=== PATIENT | female | born 1935 | race Caucasian/White ===

== ENCOUNTER 2016-08-28 23:30 | Inpatient (IN) | payer MEDICARE ==
[~2016-08-28] VITALS: Ht 165.1 cm; Wt 39.1 kg
--- NOTE | ~2016-08-28 | HP ---
PATIENT'S NAME: WILLIAM BUSBY [facility] AGE: 81 Y [address] ROOM: [address] [place], [place] [address] LOCATION: GPCU ADMIT DATE: 08/29/2016 History & Physical DISCHARGE DATE: FAMILY PHYSICIAN: PHYSICIAN, NO ATTENDING PHYSICIAN: KASI LUJAN DATE OF SERVICE: CHIEF COMPLAINT: Shortness of breath and chest pain. HISTORY OF PRESENT ILLNESS: This is a 81-year-old female who is a poor historian. The patient says that about 8 hours ago she felt this sudden onset of shortness of breath and a very brief duration of a few seconds of substernal chest pain that she described as stabbing-type of chest pain without radiation and lasted only about a few seconds. The intensity of the chest pain was about 4/10. She could not give any more history. Upon further questioning, the patient says that she still smokes cigarette, she has been smoking cigarettes about half pack per day all her life. The patient has a history of lung adenocarcinoma stage IA, status post right thoracotomy with right upper lobectomy on October 16, 2014. The patient chronically has chronic productive yellowish cough and at baseline also has some exertional dyspnea, but she says that 8 hours ago these symptoms worsened. However, she states that her chronic productive cough has not been getting worse. The main problem that made her come here is that she has been feeling cold and also sudden onset of dyspnea that happened 8 hours ago. No other history could be obtained given that the patient is a poor historian and her at bedside could not provide much information either. The patient denies any other symptoms. She also denies any trauma or any recent sickness or any recent sick contact. REVIEW OF SYSTEMS: As mentioned in the history of present illness. All other systems reviewed and negative except those mentioned in the history of present illness. PAST MEDICAL HISTORY: 1. Adenocarcinoma of the lungs, stage IA, status post right thoracotomy and right upper lobectomy on October 16, 2014. 2. Dementia per medical records. 3. COPD, not on home oxygen. Active cigarette smoker about a half pack per day all her life. 4. Active alcohol use about 1-2 cans of beer on and off. The last drink was the day before yesterday. She denies any alcohol withdrawal or any alcohol withdrawal seizure in the past. 5. Hypertension. PATIENT'S NAME: WILLIAM BUSBY [facility] AGE: 81 Y [address] ROOM: [address] [place] [address] [facility] ADMIT DATE: 08/29/2016 History & Physical DISCHARGE DATE: FAMILY PHYSICIAN: PHYSICIAN, NO ATTENDING PHYSICIAN: KASI LUJAN 6. Osteoarthritis. 7. Restless legs syndrome. 8. Failure to thrive. ALLERGIES: SULFA, DOXYCYCLINE, PENICILLIN, LODINE (SHE DOES NOT REMEMBER WHAT REACTION SHE HAS TO THESE MEDICATIONS). HOME MEDICATIONS: Currently is being reconciled. The patient does not remember any medication that she takes at home. SOCIAL HISTORY: The patient is an active cigarette smoker about half a pack per day all her life. The patient is an active alcohol drinker about 1-2 cans of beer on and off all her life, last drink was the day before yesterday. She denies any illegal drug use. She also denies any history of alcohol withdrawal or alcohol withdrawal seizure or delirium tremens in the past. FAMILY HISTORY: Father at age 61-year-old, but she could not remember what cause. Mother from cancer at age 39, but she could not remember which type of cancer. PAST SURGICAL HISTORY: 1. Status post right thoracotomy and right upper lobe lobectomy secondary to adenocarcinoma of the lung in the past. 2. Status post appendectomy. 3. Status post hysterectomy. 4. Status post stenting of the femoropopliteal artery x2 in 2008, not sure which extremity, this is per the medical record. 5. Status post left breast lumpectomy in the past. 6. Status post shoulder surgery, not sure per medical records. PHYSICAL EXAMINATION: VITAL SIGNS: At the time of my dictation, temperature 100.2, blood pressure 140/80, respirations 20, heart rate 90, and saturation 94% on 4 L nasal cannula. GENERAL APPEARANCE: The patient looks frail, elderly, deconditioned, cachectic, malnourished, and not in acute distress. Alert and oriented x3, but a very poor historian. HEENT: Pupils equally round and reactive to light. Extraocular muscles intact. Anicteric sclerae. Nasal turbinates are normal bilaterally. Moist oral mucosa. No oral thrush. NECK: No JVD. No cervical lymphadenopathy. No neck stiffness. PATIENT'S NAME: WILLIAM BUSBY [facility] AGE: 81 Y [address] ROOM: [address] [place] [address] LOCATION: GPCU ADMIT DATE: 08/29/2016 History & Physical DISCHARGE DATE: FAMILY PHYSICIAN: PHYSICIAN, NO ATTENDING PHYSICIAN: KASI LUJAN CARDIOVASCULAR: Regular rate and rhythm. Normal S1, S2. No murmur, no rubs, no gallops. RESPIRATORY: Decreased breath sounds diffusely. No obvious wheezing, crackles, rales, or rhonchi. Absent breath sounds on the right upper lung field. ABDOMEN: Soft, nontender, nondistended. Normal bowel sounds. No hepatosplenomegaly. Bowel sounds are present. EXTREMITIES: No edema in upper or lower extremities. SKIN: No ulcer, no rash, no cyanosis. MUSCULOSKELETAL: No joint pain, no muscle pain. Range of motion intact. NEUROLOGIC: Grossly nonfocal. LABORATORY DATA: ABG on room air shows saturation 88%, pH 7.42, pCO2 30, PO2 54, bicarbonate 19.5. Lactic acid 5.5. Troponin less than 0.04, CPK 43, the first set. ProBNP of 1069. White blood cells 21.6, hemoglobin 16.5, hematocrit 50, MCV 98.2, and platelet 280. Glucose 103, BUN 6, creatinine 0.6, sodium 136, potassium 3.3, chloride 99, and CO2 21. Calcium 9.4, total protein 7.8, albumin at 3.6, AST 36, ALT 46, alkaline phosphatase 147, total bilirubin 0.4. GFR more than 60. Anion gap 19.3. INR 1.0. Urinalysis not yet collected. CK-MB 1.4, CRP 0.6. Influenza nasal antigen swab negative. Procalcitonin less than 0.05. IMAGING STUDIES: 1. EKG on admission shows sinus tachycardia, heart rate of 118, QRS 81 msec, with left axis deviation. No acute ischemic changes. 2. Chest x-ray on admission, imaging and official report are pending. ASSESSMENT/PLAN: 1. Severe sepsis and acute hypoxemic respiratory failure secondary to possible pneumonia; however, has to rule out spontaneous pneumothorax: Chest x-ray report is pending and if concerning, will request to be read by our on-call radiologist to rule out spontaneous pneumothorax. The patient has a significant smoking history and has undergone right upper lung lobectomy for lung adenocarcinoma, and she has very decreased and almost absent breath sounds diffusely even on the left side of the lung. In the setting of a sudden onset of shortness of breath, chest pain, and active smoking, advanced copd, I am concerned about secondary spontaneous pneumothorax if she could have had a bleb that ruptured. Second differential could be pulmonary embolism due to the sudden onset of chest pain and also shortness of breath. I will get a D-dimer checked right now. If positive, we will get a CT pulmonary angiogram. Her kidney function is normal. For the possible pneumonia, I am going to cover her with triple antibiotics given that she is a very frail elderly female, with lung cancer but still smokes and has advanced COPD; PATIENT'S NAME: WILLIAM BUSBY [facility] AGE: 81 Y [address] ROOM: [place] [address] LOCATION: GPCU ADMIT DATE: 08/29/2016 History & Physical DISCHARGE DATE: FAMILY PHYSICIAN: PHYSICIAN, NO ATTENDING PHYSICIAN: KASI LUJAN therefore, I am going to cover her with IV vancomycin and IV aztreonam given that she has the penicillin allergy, not sure what reaction, but she is a poor historian and I will also add IV Levaquin. I will do pneumonia workup including sputum culture, Gram stain, urinary antigen for Legionella and pneumococcal, keep her on oxygen nasal cannula to keep saturation 90 to 94% in a COPD patient. Treat her with COPD treatment with IV Solu-Medrol 125 mg x1 now, then 60 b.i.d. and also nebulization with Xopenex plus Atrovent q.6 hours while awake for 24 hours, then titrate per RT for RSS and Atrovent q.2 hours p.r.n. per RT for RSS. Incentive spirometry. I will also get blood culture 2 sets and check a UA and a urine culture. The patient has fever, has extreme leukocytosis, has tachypnea, tachycardic, also with acute hypoxemic respiratory failure, and also has elevation of lactic acid. The patient meets the criteria for severe sepsis. Severe sepsis order has been filled out and is in the chart. Further plan depends on clinical course. If has diarrhea, will check for c diff also. 2. Regarding her hypokalemia: I will give her IV potassium chloride 40 mEq x1 run at 10 mEq over 1 hour, given the patient feels nauseous and I do not think she can tolerate p.o. potassium at the moment. 3. Regarding her transient chest pain: I will keep checking cardiac enzymes every 6 hours for a total of 3 sets. EKG on admission did not show any acute ischemic changes. Repeat EKG in the morning. Currently, the patient is chest pain-free. Further plan depends on clinical course. 4. Regarding her active cigarette use: Nicotine patch 21 g transdermal daily. 5. Regarding her active alcohol use: Put her on the CIWA protocol order set. 6. Regarding her hypertension: Medication is being reconciled. and I will hold off on her home medication in the setting of severe sepsis. 7. Regarding her lung cancer adenocarcinoma, status post right thoracotomy and right upper lobe lobectomy in the past: As mentioned before, I will get a chest x-ray and might request it to be read by our radiologist to rule out spontaneous pneumothorax and also if D-dimer is high, I will get a CT pulmonary angiogram to rule out PE. I will also consult Pulmonology in this case due to the complexity of her previous lung history in the setting of her acute hypoxemic respiratory failure. 8. Reported history of deep venous thrombosis: Details not clear. The patient does not remember. I will screen her with venous duplex ultrasound of the bilateral lower extremities. 9. Deep venous thrombosis prophylaxis: I will wait for the chest x-ray to be read 1st to rule out spontaneous pneumothorax in case she would require invasive intervention. If negative, will use lovenox sc. CODE STATUS: She is a full code. PATIENT'S NAME: WILLIAM BUSBY [facility] AGE: 81 Y [address] ROOM: [place] [address] LOCATION: GPCU ADMIT DATE: 08/29/2016 History & Physical DISCHARGE DATE: FAMILY PHYSICIAN: PHYSICIAN, NO ATTENDING PHYSICIAN: KASI LUJAN Time spent on the day of admission 60 minutes including chart review, interviewing and examining the patient, addressing all the questions and concerns the patient and the patient's had at the bedside, and going over the plan of care with the nurse and also with the patient and the patient's . MD AJDA MARTINEZ/lorna /[id number] D: [id number] T: [id number] HISTORY & PHYSICAL
--- NOTE | ~2016-08-28 | ER ---
PATIENT'S NAME: WILLIAM BUSBY [facility] AGE: 81 Y [address] ROOM: [address] [address] [facility] ADMIT DATE: 08/29/2016 ER/Outpatient Report DISCHARGE DATE: FAMILY PHYSICIAN: PHYSICIAN, JOHNNA ATTENDING PHYSICIAN: KASI LUJAN Admission date and time documented in the medical record. I saw the patient at 2340 hours. CHIEF COMPLAINT: Shortness of breath, generalized weakness, ill all day. HISTORY OF PRESENT ILLNESS: The patient is a 81-year-old female, who has been ill since this morning. She has had a deteriorating course throughout the day. She has no chest pain, but is quite short of breath. It was found to have her O2 sats in the high 70s, low 80s on room air at home by paramedics. Paramedics brought the patient into the emergency room for evaluation via ambulance. The patient has generalized weakness. "I feel sick." The patient denies any headache, eyes, ears, nose, throat, neck, or spine pain. Does not ache all over. A little lightheaded, dizzy, but no syncope or near syncope. No fall or trauma up until today. No recent colds, coughs, flus, fever, chills, or sweats. No abdominal pain, nausea, vomiting, diarrhea. No urinary frequency, urgency, or dysuria. No incontinence. No joint or muscle swelling, redness, or pain. No skin eruptions or rash. No history of neuro changes, psych issues, endocrine problems. The patient does have a history of peripheral vascular disease, claudication, coronary artery disease, COPD. She has had a history of adenocarcinoma of the right upper lung with thoracotomy and right upper lung lobectomy. She was hypothermic with a temperature 95.7. She is tachypneic, tachycardic, and hypoxic. HOME MEDICATIONS: None. ALLERGIES: SULFA, DOXYCYCLINE, PENICILLIN, AND IODINE. SOCIAL HISTORY: The patient smokes half a pack of cigarettes per day. Occasional intake of alcohol. SIGNIFICANT PAST MEDICAL HISTORY: Atherosclerotic ischemic heart disease with coronary artery disease, COPD, tobacco abuse, alcohol abuse, peripheral vascular disease, claudication, hypertension, dyslipidemia, breast cancer, lung cancer, respiratory distress, PATIENT'S NAME: WILLIAM BUSBY [facility] AGE: 81 Y [address] ROOM: [address] [place], [place] [address] [facility] ADMIT DATE: 08/29/2016 ER/Outpatient Report DISCHARGE DATE: FAMILY PHYSICIAN: PHYSICIAN, NO ATTENDING PHYSICIAN: KASI LUJAN restless legs syndrome, poor nutritional status. OPERATIONS: Bronchoscopy, hemorrhoidectomy, hysterectomy, appendectomy, neck surgery, shoulder surgery, thoracotomy with right upper lung lobectomy, left breast lumpectomy, colonoscopy, cardiac catheterization with PTCA and stenting. REVIEW OF SYSTEMS: All systems reviewed by me are negative with the exception of those discussed in the history of present illness. PHYSICAL EXAMINATION: VITAL SIGNS: Temperature 95.7 tympanic, pulse 116 and regular, respirations 20, blood pressure 172/73, O2 saturation on 4 L oxygen nasal cannula is 94%. HEAD: Normocephalic. No abrasion, contusion, laceration, or swellings. EYES: Extraocular muscles intact. PERRL. EARS: Clear TMs bilaterally. NOSE: Clear. THROAT: Clear. Mucous membranes moist. NECK: No nuchal rigidity. No thyromegaly or cervical adenopathy. LUNGS: Diminished breath sounds diffusely, especially in the right lung field. The patient is tachypneic. HEART: Tachy, regular. Pulses palpable. ABDOMEN: Soft. Nondistended. Nontender. Active bowel tones. No organomegaly or abnormal mass palpable. EXTREMITIES: Without peripheral edema, cyanosis, or deformity. NEUROVASCULAR: Intact. SKIN: Clear. No skin eruptions or rash. The patient has very cachectic skin and bones. LABORATORY DATA AND X-RAYS: Chest x-ray shows what looks like to be scattered infiltrate in both lung marie. We will review x-ray with the radiologist. Laboratory: Procalcitonin was less than 0.05. Lactate was 5.5. Arterial blood gases on room air showed a pH of 7.42, pCO2 of 30, pO2 of 54 with an O2 saturation of 88%. Influenza A and B were both negative. CMS was normal except for a low potassium of 3.3, elevated glucose 103, elevated alkaline phosphatase 147. CPK was 43. Vgifl-jw-jped cardiac enzymes were normal. CRP was elevated at 0.60. ProBNP was elevated 1069. White count was 21,600, 87 segs, 6 lymphs, 5 monos, 1 baso, hemoglobin 16.5, hematocrit 50.0, platelet count is 380,000. PTT was 28, pro-time was 9.9 with an INR 1.0. Blood cultures x2 drawn, results are pending. EMERGENCY DEPARTMENT COURSE: PATIENT'S NAME: WILLIAM BUSBY [facility] AGE: 81 Y [address] ROOM: [place] [address] [facility] ADMIT DATE: 08/29/2016 ER/Outpatient Report DISCHARGE DATE: FAMILY PHYSICIAN: PHYSICIAN, JOHNNA ATTENDING PHYSICIAN: KASI LUJAN I did give the patient a DuoNeb respiratory treatment here in the emergency department. Started her on fluids. We will give her 2 L followed by 150 mL an hour. She is not hypotensive. We did start her on Levaquin 750 mg IV here in the emergency department. IMPRESSION: 1. Bilateral pneumonia. The patient meets sepsis criteria. Culture is pending. 2. Chronic obstructive pulmonary disease. 3. History of adenocarcinoma of the right upper lung with thoracotomy and right upper lung lobectomy. 4. History of left breast cancer, status post left breast lumpectomy. 5. Tobacco abuse. 6. Alcohol abuse. 7. Atherosclerotic ischemic heart disease with coronary artery disease. 8. Peripheral vascular disease with claudication. 9. Hypertension. 10. Dyslipidemia. 11. Poor nutritional status. PLAN: Discussed the patient with Dr. Lujan, hospitalist. Dr. Lujan is going to see the patient here in the emergency department, admit the patient to PCU telemetry for further evaluation and treatment. Discussion ensued with the patient concerning my findings and recommendations, she understands. Cumulative critical care time 40 minutes. MD CARY CASAREZ/modl /[id number] d: 08/29/16 0258 t: 08/29/161811, OUTPATIENT REPORT
--- NOTE | ~2016-08-28 | ENPV ---
Vascular Lower Extremities DVT Study Procedure Demographics Patient Name WILLIAM BUSBY Date of Study 08/29/2016 Patient Number [id number] Gender Female Date of 1935 Age 81 Visit Number [id number] Height Accession Number [id number] Weight Room Number G6322 BSA BMI Referring Laura Lim MD Interpreting Matty Padilla MD Physician Physician Physician Ordering Laura Lim Boilers Inspector Physician Central Office Rep[facility]r [facility] Conclusions Summary No evidence of deep vein thrombosis or superficial thrombophlebitis in the lower extremities bilaterally. Procedure Type of Study: Veins:Lower Extremities DVT Study, Venous Duplex Lower Extremity Bilateral. Additional Indications:pneumonia Appropriate Use Criteria:7 Patient Status:Routine. Study Location:Inpatient Portable. Technical Quality:Adequate visualization. Velocities are measured in cm/s ; Diameters are measured in cm Right Lower Extremities DVT Study Measurements Right 2D and Doppler Measurements + + + + +------+------+ + !Location !Visualized!Compressibility!Thrombosis!Signal!Reflux!Reflux ! ! ! ! ! ! ! !(sec) ! + + + + +------+------+ + !GSV Thigh !Yes !Yes !None !Phasic! ! ! + + + + +------+------+ + !Common !Yes !Yes !None !Phasic! ! ! !Femoral ! ! ! ! ! ! ! + + + + +------+------+ + !Prox !Yes !Yes !None !Phasic! ! ! !Femoral ! ! ! ! ! ! ! + + + + +------+------+ + !Mid Femoral!Yes !Yes !None !Phasic! ! ! + + + + +------+------+ + !Dist !Yes !Yes !None !Phasic! ! ! !Femoral ! ! ! ! ! ! ! + + + + +------+------+ + !Popliteal !Yes !Yes !None !Phasic! ! ! + + + + +------+------+ + !Gastroc !Yes !Yes !None !Phasic! ! ! + + + + +------+------+ + !PTV !Yes !Yes !None !Phasic! ! ! + + + + +------+------+ + !Peroneal !Yes !Yes !None !Phasic! ! ! + + + + +------+------+ + Left Lower Extremities DVT Study Measurements Left 2D and Doppler Measurements + + + + +------+------+ + !Location !Visualized!Compressibility!Thrombosis!Signal!Reflux!Reflux ! ! ! ! ! ! ! !(sec) ! + + + + +------+------+ + !GSV Thigh !Yes !Yes !None !Phasic! ! ! + + + + +------+------+ + !Common !Yes !Yes !None !Phasic! ! ! !Femoral ! ! ! ! ! ! ! + + + + +------+------+ + !Prox !Yes !Yes !None !Phasic! ! ! !Femoral ! ! ! ! ! ! ! + + + + +------+------+ + !Mid Femoral!Yes !Yes !None !Phasic! ! ! + + + + +------+------+ + !Dist !Yes !Yes !None !Phasic! ! ! !Femoral ! ! ! ! ! ! ! + + + + +------+------+ + !Popliteal !Yes !Yes !None !Phasic! ! ! + + + + +------+------+ + !Gastroc !Yes !Yes !None !Phasic! ! ! + + + + +------+------+ + !PTV !Yes !Yes !None !Phasic! ! ! + + + + +------+------+ + !Peroneal !Yes !Yes !None !Phasic! ! ! + + + + +------+------+ + Signature dtt: TIFFANIE QUINTANILLA dtd: 08/29/16 0704 Physician Self Trang
--- NOTE | ~2016-08-28 | CON ---
PATIENT'S NAME: WILLIAM BUSBY [facility] AGE: 81 Y [address] ROOM: [place] [address] LOCATION: GPCU ADMIT DATE: 08/29/2016 Consultation DISCHARGE DATE: FAMILY PHYSICIAN: PHYSICIAN, NO ATTENDING PHYSICIAN: KASI LUJAN DATE OF CONSULTATION: 08/29/2016 REFERRING PHYSICIAN: Baltazar Rice MD REFERRING: Hospitalist Service. REASON FOR REFERRAL: Hypoxemia. HISTORY OF PRESENT ILLNESS: The patient is a 81-year-old woman who was brought to the emergency room after being found hypoxemic, short of breath. She has a longstanding history of pulmonary problems including adenocarcinoma, status post right upper lobectomy and persistent tobacco use with COPD. Interestingly, she is not hypoxemic, currently on room air. PAST MEDICAL HISTORY: Please refer to the admission history and physical exam. FAMILY HISTORY: Negative for lung disease. SOCIAL HISTORY: Lives with her at home. REVIEW OF SYSTEMS: As per HPI. PHYSICAL EXAMINATION: GENERAL: Cachectic elderly, frail. ENT: Unremarkable. NECK: Normal. CHEST: Hyperinflated. LUNGS: Diminished breath sounds with a few rhonchi. HEART: Regular. ABDOMEN: Soft, nontender. EXTREMITIES: No clubbing or edema. ASSESSMENT: PATIENT'S NAME: WILLIAM BUSBY [facility] AGE: 81 Y [address] ROOM: [place] [address] LOCATION: GPCU ADMIT DATE: 08/29/2016 Consultation DISCHARGE DATE: FAMILY PHYSICIAN: PHYSICIAN, NO ATTENDING PHYSICIAN: KASI LUJAN Given that she is not hypoxemic presently, I am not sure there is an acute respiratory issue. Certainly, she has number of chronic respiratory issues that are ongoing. Workup is currently in progress. We will follow with you. MD BRANDON SCHROEDER/lorna /[id number] d: 08/29/16 1411 t: 09/01/16 1303, CONSULTATION REPORT
--- NOTE | ~2016-08-28 | DS ---
PATIENT'S NAME: WILLIAM BUSBY [facility] AGE: 81 Y [address] ROOM: [address] [place], [place] [address] LOCATION: GPCU ADMIT DATE: 08/29/2016 Discharge Summary DISCHARGE DATE: 08/31/2016 FAMILY PHYSICIAN: David Dunn MD ATTENDING PHYSICIAN: Jj Sanchez PRIMARY DIAGNOSES: 1. Acute hypoxic respiratory failure. 2. Right hilar lobar pneumonia. 3. Chronic obstructive pulmonary disease exacerbation. 4. Severe protein-calorie malnutrition. 5. Alcohol abuse. 6. Hypokalemia. PRINCIPAL PROCEDURES: Done for the patient, none was indicated. LABORATORY DATA: On admission, ABG was 7.42, pCO2 of 30, pO2 of 54, bicarb 19.5. Lactic acid 5.5, repeat was 3.0. Troponin less than 0.0. ProBNP 1069. WBC on admission was 21.6, prior to discharge was 18.3; H and H on admission were 16.5 and 50.0, prior to discharge were 12.2 and 36.3; platelet 380. Sodium on admission was 136, prior to discharge was 142; potassium on admission was 3.3, prior to discharge was 4.3; bicarb was stable throughout hospital stay, on admission was 21, prior to discharge was 24; creatinine on admission was 0.6, prior to discharge was 0.5; BUN was 6 on admission, prior to discharge was 11. Phosphorus on admission was 2.8, was stable throughout the hospital stay. Liver function tests were within normal limits. Magnesium on admission was 1.5, prior to discharge was 2.4. INR was 1.0. UA: Leukocytes were 25, nitrite was negative, wbc was 0 to 2, bacteria was rare. Procalcitonin was 0.12. Neutrophil differential was 92.1. MICROBIOLOGY DATA: Blood culture no growth until discharge. Urine for Legionella antigen was negative. Urine for streptococcal antigen was negative. Urine culture was no growth after 2 days. RADIOLOGY DATA: Chest x-ray is reported as postoperative changes at the right hemithorax with volume loss and elevation of the right hemidiaphragm. Patchy right perihilar and infrahilar opacity, which could reflect edema, atelectasis, or infiltrate. Vascular congestion with diffuse coarse reticular opacity, which could reflect edema or infiltrate. Chronic changes of scarring. Small noncalcified pulmonary nodule seen on prior CT imaging in the right mid lung not definitely identified on the portable radiograph. CT chest with contrast, stable 7 mm nodule in the right mid lung, and stable calcified granuloma at the mid left lung. Interval development of right perihilar interstitial opacities and right basilar interstitial and PATIENT'S NAME: WILLIAM BUSBY [facility] AGE: 81 Y [address] ROOM: [facility] [place] [place] [address] LOCATION: GPCU ADMIT DATE: 08/29/2016 Discharge Summary DISCHARGE DATE: 08/31/2016 FAMILY PHYSICIAN: David Dunn MD ATTENDING PHYSICIAN: Jj Sanchez parenchymal opacities, raising the question of underlying infiltrate. Right- sided bronchial secretions are present at the right lower lung. New small right pleural fluid collection. HOSPITAL COURSE: For history of present illness, please take a look at the H and P, which was done by Dr. Sanchez. The patient was admitted to progressive care unit, was managed as a case of acute hypoxic respiratory failure. Given the patient's history of COPD and also being an active smoker, there was initial concern for probable a ruptured bleb responsible for the acute hypoxic respiratory failure, however, chest x-ray did not confirm this. The patient was also empirically treated as a case of COPD exacerbation and was started on Solu-Medrol and also was started on broad-spectrum antibiotics of Azactam, Levaquin, and vancomycin. By the next day of the hospital stay, surprisingly, the patient's acute hypoxic respiratory failure had resolved, and she was weaned off oxygen to room air. She did also get a Pulmonary consult, and by the next day of the hospital stay after the patient was seen by the special education science teacher, Dr. Rice decided to sign off as the patient was saturating fine on room air as there were no acute pulmonary issues going on. The first day of the hospital stay, the patient's vancomycin was discontinued, and she was continued on Levaquin and Azactam. Also on the first day of the hospital stay, the white blood cell count did trend down, and at this point, Solu- Medrol was discontinued, and the patient was started on a prednisone taper. By the second day of the hospital stay, white cell count had increased; however, the patient was afebrile; she was on room air, had no report respiratory issues, and she began to ambulate on the hallway without symptoms of shortness of breath. The elevation in white cell count was thought to secondary to the Solu-Medrol. On the day of discharge, white cell count still continued to trend up; however, the patient remained afebrile. Cultures remained negative, urine culture as well remained negative. The patient did not have any complaint. No complaint of abdominal pain or chest pain, and respiratory status was still stable, and vital signs were stable, and the patient was discharged home on Levaquin for an additional 8 doses more as the patient's Levaquin was renally dosed. Please also note that on admission given the patient's history of alcohol use, which was chronic and persistent, she was also put on alcohol detox pathway. However, she did not have any active withdrawal symptoms during her hospital stay. MEDICATIONS ON DISCHARGE: 1. Pepcid 20 mg p.o. twice daily. 2. Folic acid 1 mg p.o. daily. 3. Magnesium oxide 400 mg p.o. daily. 4. Multivitamin 1 tablet p.o. daily. 5. Prednisone taper 40 mg p.o. daily, x2 more days to complete 3 days, then prednisone 30 mg p.o. daily for 3 days, then prednisone 20 mg p.o. daily for 3 days, then prednisone 10 mg p.o. daily for 3 days, then prednisone PATIENT'S NAME: WILLIAM BUSBY [facility] AGE: 81 Y [address] ROOM: [place] [address] LOCATION: GPCU ADMIT DATE: 08/29/2016 Discharge Summary DISCHARGE DATE: 08/31/2016 FAMILY PHYSICIAN: David Dunn MD ATTENDING PHYSICIAN: Jj Sanchez 5 mg p.o. daily for 3 days, then stop. 6. Thiamine 100 mg p.o. daily. 7. Levaquin 750 mg q.48 hours p.o. x7 doses. 8. Spiriva 18 mcg daily. DISCHARGE INSTRUCTIONS: Include the patient is to follow up with her family doctor, who is going to be Dr. David Dunn in the next 2 to 4 days, and the patient also has been set up to follow up with a piping design specialist as requested by family in the next 1 week. She was supposed to be on a regular diet. MD JAYLA MCNAMARA/lorna /[id number] d: 09/01/16 0009 t: 09/03/16 1355, DISCHARGE SUMMARY
[~2016-08-28 23:30] MED LIST changes: -DELTASONE10 MG PO; -DELTASONE20 MG PO; -DELTASONE5 MG PO; -FOLIC ACID1 MG PO; -LEVAQUIN750 MG PO; -MAG-OX-400(241400 MG PO; -PEPCID20 MG PO; -SPIRIVA HANDIHA1 KIT INH; -THERAGRAN-M1 TAB PO; -THIAMINE HCL100 MG PO
[2016-08-29 00:11] LABS: BASOPHIL # 0.2 K/uL (0.0-0.2); BASOPHIL % 0.7 %; BICARBONATE 19.5 mmol/L (18.0-23.0); EOSINOPHIL % 0.2 %; HEMOGLOBIN 16.5 g/dL (10.0-15.0); IMMATURE GRANULOCYTE # 0.1 K/uL (0.0-0.3); IMMATURE GRANULOCYTE % 0.4 %; LACTATE 5.5 mEq/L (0.50-1.60); LYMPHOCYTE # 1.4 K/uL (0.8-4.0); LYMPHOCYTE % 6.4 %; MCH 32.4 pg (27.0-34.0); MCV 98.2 fl (83.0-98.0); MONOCYTE # 1.2 K/uL (0.0-1.0); MONOCYTE % 5.4 %; NEUTROPHIL # (ANC) 18.8 K/uL (1.8-7.8); NEUTROPHIL % 86.9 %; NRBC % 0 /100WBC (0-0.00); PCO2 30 mmHg (35-45); PLATELET COUNT 380 K/uL (150-450); PO2 54 mmHg (80-90); RBC 5.09 M/uL (3.50-5.50); RDW-CV 12.9 % (11.9-14.6); WBC 21.6 K/uL (4.0-11.0)
[2016-08-29 00:20] LABS: PROTIME 9.9 SECONDS (9.6-11.1); PTT 28 SECONDS (25-32)
[2016-08-29 00:30] LABS: ALBUMIN 3.6 gm/dL (3.5-5.0); ALK PHOS 147 IU/L (33-138); ALT 46 IU/L (12-78); ANION GAP 19.3 (10.0-19.0); AST 36 IU/L (10-40); BLOOD UREA NITROGEN 6 mg/dL (6-24); CALCIUM 9.4 mg/dL (8.5-10.5); CHLORIDE 99 mMol/L (96-110); CO2 21 mMol/L (22-32); CPK 43 IU/L (21-215); CREATININE 0.6 mg/dL (0.5-1.1); ESTIMATED GFR (MDRD EQUATION) > 60; POTASSIUM 3.3 mMol/L (3.7-5.1); SODIUM 136 mMol/L (135-145); TOTAL BILIRUBIN 0.4 mg/dL (0.0-1.5); TOTAL PROTEIN 7.8 g/dL (6.0-8.4)
[2016-08-29 02:42] LABS: MAGNESIUM 1.8 mg/dL (1.3-2.6); PHOSPHORUS 2.8 mg/dL (2.5-4.9)
--- NOTE | 2016-08-29 04:42 | NUR ---
Patient comes from home was having some SOB and not feeling well last few weeks. Late last night had increase SOB call EMS and brought to hosptial. Patient admitted with pneuomina/sepsis. Patient A/Ox3 but forgetful. VSS on 4L NC. Dry skin. IV to RT hand. Lungs diminished. Bowel sounds hypoactive. IV antibotics started. Does drink and smoke. CIWA protocal started. NPO. Bland placed. to see patient.
[2016-08-29 05:29] LABS: BILIRUBIN URINE NEGATIVE (NEGATIVE); BLOOD URINE 10 /UL (NEGATIVE); COLOR URINE YELLOW (YELLOW); GLUCOSE URINE NEGATIVE (NEGATIVE); KETONE URINE NEGATIVE (NEGATIVE); LEUKOCYTES URINE 25 /UL (NEGATIVE); NITRITE URINE NEGATIVE (NEGATIVE); PROTEIN URINE 30 mg/dL (NEGATIVE); SPEC GRAVITY URINE 1.015 (1.003-1.035); TURBIDITY URINE CLEAR (CLEAR); UROBILINOGEN URINE NORMAL (NORMAL)
[2016-08-29 05:45] LABS: BACTERIA URINE RARE (NEGATIVE); EPITHELIAL URINE 0-2 #/HPF (NEGATIVE); RBC URINE 0-2 #/HPF (NEGATIVE); WBC URINE 0-2 #/HPF (NEGATIVE)
[2016-08-29 06:17] LABS: HEMATOCRIT 40.3 % (33.0-46.0); HEMOGLOBIN 13.6 g/dL (10.0-15.0); MCH 32.6 pg (27.0-34.0); MCHC 33.7 gm/dL (32.0-36.5); MCV 96.6 fl (83.0-98.0); MPV 10.4 fl (9.4-12.4); RBC 4.17 M/uL (3.50-5.50); RDW-CV 12.8 % (11.9-14.6)
[2016-08-29 06:18] LABS: WBC 16.7 K/uL (4.0-11.0)
[2016-08-29 06:27] LABS: ALBUMIN 2.6 gm/dL (3.5-5.0); ALK PHOS 110 IU/L (33-138); ALT 31 IU/L (12-78); ANION GAP 15.6 (10.0-19.0); AST 23 IU/L (10-40); BLOOD UREA NITROGEN 6 mg/dL (6-24); CALCIUM 7.8 mg/dL (8.5-10.5); CHLORIDE 103 mMol/L (96-110); CO2 24 mMol/L (22-32); CREATININE 0.6 mg/dL (0.5-1.1); ESTIMATED GFR (MDRD EQUATION) > 60; MAGNESIUM 1.5 mg/dL (1.3-2.6); PHOSPHORUS 2.3 mg/dL (2.5-4.9); POTASSIUM 3.6 mMol/L (3.7-5.1); SODIUM 139 mMol/L (135-145); TOTAL PROTEIN 5.9 g/dL (6.0-8.4)
[2016-08-29 06:29] LABS: TOTAL BILIRUBIN 0.6 mg/dL (0.0-1.5)
[2016-08-29 06:30] LABS: CPK 42 IU/L (21-215)
[2016-08-29 12:25] LABS: CPK 41 IU/L (21-215)
--- NOTE | 2016-08-29 15:37 | NUR ---
Significant Event: Patient oriented x 3 but forgetful/impulsive. Alarms engaged at all times. VSS on RA. Weaned to RA by 0800 this A.M. Lungs diminished and slightly coarse at times. Afebrile this shift. Has slept throughout the day except when awoken for assessment and therapy. Passed swallowing eval without problems. Last CIWA score was 3. Have no given Ativan this shift. To only give 0.5 mg if needed per MD order. RFA PIV with D5NS infusing at 50 ml/hr. Gave 2 grams of Magnesium Sulfate in addition to antibiotics today. Follow up: Continue as per plan of care. Continue to monitor for alcohol detox.
--- NOTE | 2016-08-30 05:14 | NUR ---
Significant Event: A/0 X 3 BUT VERY FORGETFULL AND REPETITIVE WITH QUESTIONS. AFFECT VERY FLAT. DID EAT 100% OF HER MEAL. ALL VSS ON RA, AFEBRILE. D5 NS AT 50 ML/HR, GETS AZACTAM Q8. NO COMPLAINTS OF PAIN, NO PAIN MEDS GIVEN. SCORES HAVE BEEN LOW ON CIWAS 3-4, NO ATIVAN GIVEN. NOT DROWSY PREVIOUSLY NOTED. Follow up:
[2016-08-30 06:08] LABS: BASOPHIL % 0.1 %; HEMATOCRIT 36.3 % (33.0-46.0); HEMOGLOBIN 12.2 g/dL (10.0-15.0); IMMATURE GRANULOCYTE # 0.2 K/uL (0.0-0.3); IMMATURE GRANULOCYTE % 1.3 %; LYMPHOCYTE # 0.6 K/uL (0.8-4.0); MCH 33.2 pg (27.0-34.0); MCHC 33.6 gm/dL (32.0-36.5); MCV 98.6 fl (83.0-98.0); MONOCYTE # 0.6 K/uL (0.0-1.0); MONOCYTE % 3.5 %; MPV 10.7 fl (9.4-12.4); NEUTROPHIL # (ANC) 16.8 K/uL (1.8-7.8); NEUTROPHIL % 92.1 %; NRBC % 0 /100WBC (0-0.00); PLATELET COUNT 259 K/uL (150-450); RBC 3.68 M/uL (3.50-5.50); RDW-CV 13.3 % (11.9-14.6)
[2016-08-30 06:10] LABS: WBC 18.3 K/uL (4.0-11.0)
[2016-08-30 06:14] LABS: ANION GAP 13.3 (10.0-19.0); CALCIUM 8.3 mg/dL (8.5-10.5); CHLORIDE 109 mMol/L (96-110); CO2 24 mMol/L (22-32); CREATININE 0.5 mg/dL (0.5-1.1); ESTIMATED GFR (MDRD EQUATION) > 60; MAGNESIUM 2.4 mg/dL (1.3-2.6); POTASSIUM 4.3 mMol/L (3.7-5.1); SODIUM 142 mMol/L (135-145)
[2016-08-30 06:17] LABS: BLOOD UREA NITROGEN 11 mg/dL (6-24)
--- NOTE | 2016-08-30 14:44 | NUR ---
I did call and spoke with daughter in law Adelaide [phone] and discussed dc plans. Plan will be home tomorrow. SHe states she lives with her and he has macular degeneration but does most of the cooking, well warming of the food. She has a walker she uses at times. Adelaide states they do most of the cooking and cleaning and now got pt set up for meals on wheels but they just need an order for it because Dr Moore left and now are wanting to have them start seeing Dr David Dunn. I asked about medications and she stated pt really only takes tylenol when needed. I did tell her she may have new medications to take when she gets home. I asked about [facility] and she thinks that would be good idea if the pt would allow them to come in the home but even if they do she will not participate with anything. I explained I will talk with pt and see what she is wanting. Adelaide plans on picking her up and reviewing the medications so give her a call [phone].
--- NOTE | 2016-08-30 16:02 | NUR ---
Introduced self and role of care management to pt. She lives with her and plans is home tomorrow. She has a walker she uses and I asked if skilled facility is needed and she states no. I asked about [facility] and she states no that she will not need it and they had in the past and all they do is get on there computer. WIll assist as needed.
--- NOTE | 2016-08-30 16:28 | NUR ---
Significant Event: Patient answers orientation questions appropriately, but very forgetful! 1A with walker. VSS on RA throughout the day. Lung sounds clear/diminished. Still need sputum sample for culture. Gave Tylenol at 1420 for generalized pain, which patient states helped. New PIV to saline locked other than with IV antibiotics. Stopped IV solumedrol and will start prednisone tomorrow. Follow up: Continue as per plan of care. Possibly discharge tomorrow.
--- NOTE | 2016-08-31 04:01 | NUR ---
INSTRUCTED PT. THAT SHE HAS A REDDENED AREA ON COCCYX AND SHE NEEDS TO POSITION ON HER SIDE - PT. REFUSES TO POSITION ON SIDE - ONLY WILL POSITION ON BACK - STATES"I AM NOT GOING TO BE ANYWHERE EXCEPT ON MY BACK BECAUSE THAT IS THE ONLY WAY I CAN SLEEP"
--- NOTE | 2016-08-31 08:15 | NUR ---
I did get a call from daughter in law regarding pt going home and worried about a shower before she leaves and her toe nails. I explained I will call up to nursing and update them what she is wanting. I did tell her I will fax the meals on wheels order but I could not get her to agree to [place]. At this time she denies any other questions or concerns. I did tell nursing to make sure to call daughter in law because she will transport and to review dc orders with her.
[2016-08-31] MEDS ORDERED: PEPCID20 MG PO (09:21)
[2016-08-31] MEDS ORDERED: FOLIC ACID1 MG PO (09:21)
[2016-08-31] MEDS ORDERED: MAG-OX-400(241400 MG PO (09:22)
[2016-08-31] MEDS ORDERED: THERAGRAN-M1 TAB PO (09:22)
[2016-08-31] MEDS ORDERED: DELTASONE20 MG PO ×2 (09:25→09:28)
[2016-08-31] MEDS ORDERED: DELTASONE10 MG PO ×2 (09:27→09:29)
[2016-08-31] MEDS ORDERED: DELTASONE5 MG PO ×2 (09:29→09:30)
[2016-08-31] MEDS ORDERED: THIAMINE HCL100 MG PO (09:34)
[2016-08-31] MEDS ORDERED: LEVAQUIN750 MG PO (09:45)
[2016-08-31] MEDS ORDERED: SPIRIVA HANDIHA1 KIT INH (09:45)
--- NOTE | 2016-08-31 12:35 | NUR ---
A - NUTRITION FOLLOW-UP. PASSED SWALLOW STUDY. FLAT AFFECT. WT ON 08/29 82# VS 08/31 86#. PATIENT REPORTED APPETITE IS SLOWLY COMING BACK. HAD ALL BREAKFAST THIS MORNING. LIKES BOOST BETTER BUT WILL STILL DRINK ENSURE, HAD 100% THIS MORNING. MIGHT DISCHARGE TODAY. LABS: GLU 124, ALB 2.6. MEDS: PREDNISONE. DIET: REGULAR W/ ENSURE TID. INTAKE 60% X6 MEALS. EST NEEDS: [id number] KCAL, 46-57 GRAMS PROTEIN, FLUID NEEDS: 1ML/KCAL D - AT NUTRITION RISK W/ UNDERWEIGHT RELATED TO INADEQUATE ENERGY INTAKE SECONDARY TO ALTERATION IN APPETITE EVIDENCED BY PO 60% X6 MEALS AND BMI OF 13.3 I - CONTINUE WITH ENSURE ENLIVE TID. M/E - GOAL: PT WILL BE ABLE TO TOLERATE >65% OF MEALS AND AT LEAST ONE ORAL SUPPLEMENT PER DAY IN 3-5 DAYS.
--- NOTE | 2016-08-31 19:51 | NUR ---
Significant Event:A&O BUT FORGETFUL. VSS, AFEBRILE, ROOM AIR. ANXIOUS ABOUT LEAVING. DISCHARGE INSTRUCTIONS DISCUSSED WITH DAUGHTER IN LAW MARY AND SPOUSE PRESENT.VERBALIZED UNDERSTANDING. BELONGINGS WITH PT. DC TO HOME AT 1638, CNC OPERATOR ESCORT TO VEHICLE, FAMILY TO TRANSPORT. Follow up:
== END 2016-08-31 16:38 | disposition disaster alternative care site (69) | DRG 189 ==
LOC: GMED 23:30 → GPCU 08-29 01:15
PROVIDERS: Emergency Medicine; Hospitalist; ADMIT Internal Medicine
PROC: HZ2ZZZZ Detoxification Services for Substance Abuse Treatment (ICD-10-PCS; principal; 2016-08-29)
DX: J96.01 Acute respiratory failure with hypoxia (principal); E43 Unspecified severe protein-calorie malnutrition; J18.1 Lobar pneumonia, unspecified organism; F03.90 Unspecified dementia, unspecified severity, without behavioral disturbance, psychotic disturbance, mood disturbance, and anxiety; J84.10 Pulmonary fibrosis, unspecified; J44.0 Chronic obstructive pulmonary disease with (acute) lower respiratory infection; J44.1 Chronic obstructive pulmonary disease with (acute) exacerbation; Z68.1 Body mass index [BMI] 19.9 or less, adult; F17.210 Nicotine dependence, cigarettes, uncomplicated; I10 Essential (primary) hypertension; E87.6 Hypokalemia; R07.89 Other chest pain; I25.10 Atherosclerotic heart disease of native coronary artery without angina pectoris; F10.10 Alcohol abuse, uncomplicated; G25.81 Restless legs syndrome; M19.90 Unspecified osteoarthritis, unspecified site; Z85.3 Personal history of malignant neoplasm of breast; Z85.118 Personal history of other malignant neoplasm of bronchus and lung; Z95.828 Presence of other vascular implants and grafts; R91.1 Solitary pulmonary nodule; Z23 Encounter for immunization; D72.829 Elevated white blood cell count, unspecified
CPT/HCPCS: J1650; J1956; J2405; J2930; J3370; J3475; J3480; J7030; J7040; J7042; J7050; J7512; J7612; Q9967

== ENCOUNTER → 2016-08-28 | Outpatient (CLI) | payer MEDICARE ==
[~2016-08-28] MED LIST: ALBUTEROL2.5 MG/0.5 INH; ATROVENT I0.5 MG/2.5 INH; CATAPRES-TTS0.3 MG TRANS; CATAPRES0.3 MG TRANS; DELTASONE10 MG PO; DELTASONE20 MG PO; DELTASONE5 MG PO; DULCOLAX10 MG R; FOLIC ACID1 MG PO; HEPARIN5000 UNIT/ SUB-Q; LEVAQUIN750 MG PO; MAG-OX-400(241400 MG PO; MEGACE400 MG/10 PO; NORCO 5-325 TA1 EACH PO; NORVASC10 MG PO; OCEAN NASAL) (A44 ML NS; PAIN RELIEVER325 MG PO; PEPCID AC20 MG PO; PEPCID20 MG PO; PROVENTIL2.5 MG/0.5 INH; SPIRIVA HANDIHA1 KIT INH; THERAGRAN-M1 TAB PO; THIAMINE HCL100 MG PO
== END | disposition disaster alternative care site (69) ==
LOC: GAMB 23:08
DX: R06.9 Unspecified abnormalities of breathing (principal); R06.00 Dyspnea, unspecified; R06.02 Shortness of breath
CPT/HCPCS: A0422; A0425; A0427